=== PATIENT | female | born 1935 | race Caucasian/White ===

== ENCOUNTER → 2017-02-23 | Outpatient (CLI) | payer MEDICARE | END | disposition home or self-care (01) | LOC: GMAB 11:07 | PROVIDERS: ATTEND Family Medicine | DX: E03.9 Hypothyroidism, unspecified (principal) ==

== ENCOUNTER → 2017-05-05 | Outpatient (CLI) | payer MEDICARE | END | disposition home or self-care (01) | LOC: GMAB 11:08 | PROVIDERS: ATTEND Family Medicine | DX: R06.02 Shortness of breath (principal) ==

== ENCOUNTER → 2017-06-02 | Outpatient (CLI) | payer MEDICARE | END | disposition home or self-care (01) | LOC: GMAB 11:51 | PROVIDERS: ATTEND Family Medicine | DX: E03.9 Hypothyroidism, unspecified (principal) ==

== ENCOUNTER → 2017-06-08 | Outpatient (CLI) | payer MEDICARE ==
--- NOTE | 2017-06-09 13:42 | MRI ---
EXAM DESCRIPTION: Cervical Spine: MRI. CLINICAL HISTORY: RADICULOPATHY, CERVICAL REGION COMPARISON: None. TECHNIQUE: Multiplanar MRI, multiple sequences, non-contrast High-field. FINDINGS: C2-3: Disc desiccation of the disc with no bulging. Canal and foramina are patent. Minimal facet arthrosis bilaterally. C3-4: Disc desiccation and moderate disc space loss with endplate irregularity. Grade 1 anterolisthesis 3.9 mm posteriorly posterior broad-based disc osteophyte bulge abutting the cord. Posterior ligaments with minimal hypertrophy. Mild canal narrowing. Left uncinate spur and facet hypertrophy with neural foraminal stenosis. Impingement of the C4 nerve in the neural foramen. Minimal arthrosis in the right facet. C4-5: Disc desiccation. Minimal disc space loss. Grade 1 anterolisthesis 1.8 mm. Posterior disc bulge abutting the cord. Severe bilateral neural foraminal narrowing. Canal Is patent. Bilateral mild facet arthrosis. C5-6: Moderate to severe disc space loss and desiccation. Grade 1 retrolisthesis 4 mm. Inferior C5 endplate is abutting the ventral cord. Bilateral uncinate spurs. Bilateral severe foraminal narrowing more left than right. Bilateral mild facet arthrosis. C6-7: Disc desiccation. Grade 1 anterolisthesis 2 mm. Disc space loss posterior. No significant bulge. Right uncinate spur with moderate to severe neural foraminal narrowing. Mild left neural foraminal narrowing. Hypertrophy of the posterior ligaments with mild to moderate canal narrowing. C7-T1 disc space maintained. Grade 1 anterolisthesis 2 mm. Disc desiccation. Mild canal narrowing. Mild bilateral neural foraminal narrowing. Mild left facet arthrosis and moderate right facet arthrosis. Normal signal in the T1-2 disc with no bulging. Disc spaces preserved. Canal and neural foramina are patent. Facets are unremarkable. No cord compression or cord edema. Spine is kyphotic C2-C5. Atlantoaxial joint is minimally degenerated. Base of the cerebellar tonsils is above the foramen magnum. Paravertebral soft tissues negative. Vertebral bodies are not compressed at any level. Normal marrow signal in the remaining vertebral bodies and the posterior elements. IMPRESSION: 1. Grade 1 anterolisthesis and spondylosis C3-4. Uncinate spur causing left neural foraminal stenosis. Correlate for left C4 radiculopathy. 2. Grade 1 anterolisthesis C4-5. Bulging disc. Bilateral severe neural foraminal narrowing; correlate for bilateral C5 radiculopathy. 3. C5-6 with grade 1 retrolisthesis and marked spondylosis. Moderate canal narrowing. Bilateral neural foraminal stenosis. Correlate for bilateral C6 radiculopathy.. 4. C6-7 grade 1 anterolisthesis and narrowing of the posterior disc space. Right uncinate spur and severe neural foraminal narrowing. Correlate for left C7 radiculopathy. 5. Grade 1 anterolisthesis 2 mm C7-T1. Moderate right facet arthrosis. Electronically signed by: Armin Hester MD 06/09/2017 1:40 PM [facility]
== END | disposition home or self-care (01) ==
LOC: MRI 14:13
PROVIDERS: ATTEND Family Medicine
DX: M54.12 Radiculopathy, cervical region (principal)

== ENCOUNTER → 2018-11-21 | Outpatient (CLI) | payer MEDICARE | LOC: GMAE 11:34 | PROVIDERS: ATTEND Family Medicine | DX: E03.9 Hypothyroidism, unspecified (principal); I10 Essential (primary) hypertension; E78.5 Hyperlipidemia, unspecified ==

== ENCOUNTER → 2018-12-21 | Outpatient (CLI) | payer MEDICARE ==
--- NOTE | 2018-12-23 08:01 | CT ---
EXAM DESCRIPTION: Abdoment/Pelvis w/o Contrast CLINICAL HISTORY: 83 years, Female, Chronic kidney disease COMPARISON: Previous sonogram December 07, 2006 TECHNIQUE: CT of the abdomen and pelvis is performed according to our non contrast protocol. FINDINGS: The lung bases are clear except for patchy atelectasis or scarring in the inferior lingula. Heart size is normal. Liver, spleen, and pancreas are unremarkable. Small duodenal diverticula in the region of the head of the pancreas. Question sludge in the posterior gallbladder versus noncalcified calculi. Correlate with sono findings. Patient had a previous sonogram December 07, 2006 which showed no gallstones. Adrenal glands appear normal. The right kidney contains a small hemorrhagic cyst but is otherwise unremarkable. The left kidney is unremarkable. No renal stones or hydronephrosis. Small bowel loops appear normal in caliber with normal wall thickness. There is no lymphadenopathy, inflammation, or free fluid observed. In the pelvis, the appendix is normal. No inflammation around the cecum or terminal ileum or sigmoid colon. Extensive sigmoid diverticulosis. No stones in the distal ureters or bladder. Rectal wall thickness is normal for degree of distention. No free fluid or mass in the pelvis. Uterus is surgically absent. Ovaries appear small and atrophic. No inguinal or lower pelvic adenopathy. Coronal and sagittal reformatted images confirm the findings. Severe degenerative disc disease in the lumbar spine and lower T-spine. Bilateral L4 spondylolysis with grade 1-2 anterolisthesis of L4 on L5. 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 IMPRESSION: No acute upper abdominal process. See above. No acute process in the pelvis. This exam was performed according to our departmental dose-optimization program, which includes automated exposure control, adjustment of the mA and/or kV according to patient size and/or use of iterative reconstruction technique. Total DLP equals 1267.36 mGycm. Electronically signed by: Rg Doherty MD 12/23/2018 7:59 AM CDT
== END ==
LOC: LAB.O 08:51
PROVIDERS: ATTEND Internal Medicine Nephrology
DX: N18.4 Chronic kidney disease, stage 4 (severe) (principal)

== ENCOUNTER → 2019-02-27 | Outpatient (CLI) | payer MEDICARE | LOC: GMAE 10:45 | PROVIDERS: ATTEND Family Medicine | DX: E03.9 Hypothyroidism, unspecified (principal); E78.5 Hyperlipidemia, unspecified ==

== ENCOUNTER → 2019-11-23 | Outpatient (CLI) | payer MEDICARE, OTHER | LOC: GMAE 11:01 | PROVIDERS: ATTEND Family Medicine | DX: E03.9 Hypothyroidism, unspecified (principal); I10 Essential (primary) hypertension; E78.5 Hyperlipidemia, unspecified ==

== ENCOUNTER 2020-07-20 16:26 | Emergency (ER) | payer OTHER ==
[2020-07-20] MEDS ORDERED: IPRATROPIUM/ALBUTEROL 3 ML VIAL NEB ONE (16:49)
--- NOTE | 2020-07-20 17:31 | RAD ---
EXAM: Chest,1 View CLINICAL INDICATION: Hypoxia COMPARISON: There is no previous study for comparison. FINDINGS: A single view of the chest was obtained. The heart size is normal. The pulmonary vascularity is unremarkable. The lungs are clear. There is no consolidation, infiltrate, pleural effusion, or pneumothorax. IMPRESSION: No evidence of active pulmonary disease. Electronically signed by: Rigboerto Mojica MD 07/20/2020 5:30 PM [facility]
--- NOTE | 2020-07-20 18:26 | ED.PDOC ---
History of Present Illness - General Chief Complaint: Respiratory Problem Stated Complaint: covid positive, referred from [facility] Time Seen by Provider: 07/20/20 16:33 Source: patient Exam Limitations: no limitations - History of Present Illness Initial Comments: The patient is a 85-year-old female presented to emergency room secondary to being diagnosed with coronavirus today. The patient had had some borderline low oxygen levels in the clinic. She received a steroid shot and a shot of an antibiotic. She was written for azithromycin and an oral steroid for an outpatient. She was sent here to the emergency room for further evaluation. The patient has had a cough and a runny nose as well as a mild sore throat for about 4 days. No real shortness of breath. Cough is becoming a little more productive. Questionable fever. No syncope. No chest pain. Timing/Duration: other - 4 days Severity: moderate Improving Factors: nothing Associated Symptoms: cough, malaise Allergies/Adverse Reactions: Allergies Shellfish Allergy Allergy (Verified 07/20/20 16:46) Home Medications: Ambulatory Orders Apixaban [Eliquis] 2.5 mg PO BID #20 tab 07/20/20 Budes/Formoterol INH 160/4.5 [Symbicort Inhaler 160/4.5] 1 puff INH DAILY 07/20/20 Chlorthalidone [Hygroton] 25 mg PO DAILY 07/20/20 Irbesartan 150 mg PO DAILY 07/20/20 Levothyroxine Sodium [Synthroid] 0.125 mg PO DAILY 07/20/20 Spironolactone 25 mg PO DAILY 07/20/20 Review of Systems - Review of Systems Constitutional: States: malaise EENTM: States: nose congestion, throat pain Respiratory: States: cough Cardiology: States: no symptoms reported Gastrointestinal/Abdominal: States: no symptoms reported Genitourinary: States: no symptoms reported Musculoskeletal: States: no symptoms reported Skin: States: no symptoms reported Neurological: States: no symptoms reported Endocrine: States: no symptoms reported All other Systems: No Change from Baseline Past Medical History (General) - Patient Medical History Hx Seizures: No Hx of COPD: No Hx Hypertension: Yes Hx Thyroid Disease: Yes Hx Diabetes: No Surgical History: Hysterectomy Family Medical History - Family History Mother Family History: No Known Physical Exam - Physical Exam General Appearance: Alert, Comfortable, No apparent distress Eye Exam: bilateral normal Ears, Nose, Throat: hearing grossly normal, nasal congestion Neck: full range of motion, supple Respiratory: no respiratory distress, no accessory muscle use, rhonchi Cardiovascular/Chest: normal peripheral pulses, regular rate, rhythm, no edema Peripheral Pulses: radial,right: 2+, radial,left: 2+ Gastrointestinal/Abdominal: non tender, soft Rectal Exam: deferred Back Exam: no CVA tenderness, no vertebral tenderness Extremity: non-tender, normal inspection, no pedal edema, normal capillary refill 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 The patient appears to do well on her breathing treatments, helping her oxygenation. For this reason she needs to continue them every 6 hours or so at home for the next 3 to 4 days at least. The patient already has a steroid and antibiotic written by her primary care doctor which she should get filled and take. Due to the elevated inflammatory markers, I am going to place the patient on Eliquis for the next 3 weeks. She does obviously need to avoid injury while she is on a blood thinner. The patient did receive a dose of monoclonal antibody here in treatment as well. I do want her to follow back up with her primary care doctor in a couple of days. Obviously if the patient is worsening rather than holding steady or improving, then she should return here for further evaluation. For now I believe the patient would be better off at home where she can be more ambulatory and functional. The patient does have some mild acute on chronic renal insufficiency. I want her to hold her water pills for the next 2 to 3 days. [email or web address] [email or web address] [id number] 07/20/20 18:32 07/20/20 20:39 Extended stay due to monoclonal antibody infusion and difficulty with obtaining it tonight. - Results/Orders Results/Orders: Chest x-ray shows no obvious acute pathology. 07/20/20 17:00 EKG STAT shows normal sinus rhythm with PACs. Mild left axis deviation. There is mild criteria for LVH. No ST segment or T wave changes indicative of acute i schemia. Normal QT interval. Poor R wave progression. Laboratory Results - last 24 hr 07/20/20 07/20/20 07/20/20 16:48 17:03 17:03 WBC 5.2 RBC 4.50 Hgb 13.0 Hct 39.7 MCV 88.4 MCH 28.9 MCHC 32.7 L RDW 15.0 H Plt Count 118 L MPV 9.6 Absolute Neuts (auto) 4.00 Absolute Lymphs (auto) 0.60 L Absolute Monos (auto) 0.50 Absolute Eos (auto) 0.00 Absolute Basos (auto) 0.00 Neutrophils % 77.7 Lymphocytes % 12.2 L Monocytes % 9.6 H Eosinophils % 0.0 L Basophils % 0.5 PT INR PTT (SP) Fibrinogen D-Dimer, Quantitative Sodium 135 Potassium 4.6 Chloride 102 Carbon Dioxide 21 Anion Gap 16.6 BUN 55 H Creatinine 1.92 H BUN/Creatinine Ratio 28.6 H Random Glucose 111 H Serum Osmolality 285.9 Lactic Acid Calcium 8.9 Magnesium 1.7 L Ferritin 107.4 Total Bilirubin 0.7 AST 39 ALT 24 Alkaline Phosphatase 66 LD Total 178 Creatine Kinase 310 H* CK-MB (CK-2) 3.9 CK-MB (CK-2) % 1.26 Troponin I < 0.02 C-Reactive Protein 4.5 H B-Natriuretic Peptide < 15.0 Serum Total Protein 7.2 Albumin 4.0 Globulin 3.2 Albumin/Globulin Ratio 1.3 07/20/20 07/20/20 17:03 17:03 WBC RBC Hgb Hct MCV MCH MCHC RDW Plt Count MPV Absolute Neuts (auto) Absolute Lymphs (auto) Absolute Monos (auto) Absolute Eos (auto) Absolute Basos (auto) Neutrophils % Lymphocytes % Monocytes % Eosinophils % Basophils % PT 10.2 INR 1.03 PTT (SP) 30.4 Fibrinogen 400 H D-Dimer, Quantitative 1820.0 H* Sodium Potassium Chloride Carbon Dioxide Anion Gap BUN Creatinine BUN/Creatinine Ratio Random Glucose Serum Osmolality Lactic Acid 2.1 Calcium Magnesium Ferritin Total Bilirubin AST ALT Alkaline Phosphatase LD Total Creatine Kinase CK-MB (CK-2) CK-MB (CK-2) % Troponin I C-Reactive Protein B-Natriuretic Peptide Serum Total Protein Albumin Globulin Albumin/Globulin Ratio Departure - Departure Clinical Impression: COVID-19 virus infection, Advanced age, Elevated d-dimer Chronic renal disease Qualifiers: Chronic kidney disease stage: stage 3 (moderate) Disposition: Discharge to Home or Self Care Condition: Fair Departure Forms: ED Discharge - Pt. Copy, Patient Portal Self Enrollment Instructions: Coronavirus Disease 2019 (COVID-19) Overview Diet: regular diet Activity: increase activity as tolerated Referrals: JOCY TURK MD [Primary Care Provider] - 1-2 Weeks Prescriptions: Apixaban [Eliquis] 2.5 mg PO BID #20 tab Home Medications: Ambulatory Orders Apixaban [Eliquis] 2.5 mg PO BID #20 tab 07/20/20 Budes/Formoterol INH 160/4.5 [Symbicort Inhaler 160/4.5] 1 puff INH DAILY 07/20/20 Chlorthalidone [Hygroton] 25 mg PO DAILY 07/20/20 Irbesartan 150 mg PO DAILY 07/20/20 Levothyroxine Sodium [Synthroid] 0.125 mg PO DAILY 07/20/20 Spironolactone 25 mg PO DAILY 07/20/20 Additional Instructions: The patient is a 85-year-old female presented to emergency room secondary to coronavirus infection. The patient appears to do well on her breathing treatments, helping her oxygenation. For this reason she needs to continue them every 6 hours or so at home for the next 3 to 4 days at least. The patient already has a steroid and antibiotic written by her primary care doctor which she should get filled and take. Due to the elevated inflammatory markers, I am going to place the patient on Eliquis for the next 3 weeks. She does obviously need to avoid injury while she is on a blood thinner. The patient did receive a dose of monoclonal antibody here in treatment as well. I do want her to follow back up with her primary care doctor in a couple of days. The patient does show some mild dehydration, I therefore want her to hold her water pills for at least the next 2 days. Obviously if the patient is worsening rather than holding steady or improving, then she should return here for furth er evaluation. For now I believe the patient would be better off at home where she can be more ambulatory and functional.
[2020-07-20] MEDS ORDERED: ENOXAPARIN SODIUM 80 MG/0.8 ML SYG SUBCU ONE (18:48)
[2020-07-20] MEDS ORDERED: ALBUTEROL SULFATE 2.5 MG/3 ML VIAL NEB ONE (20:23)
[2020-07-20] MEDS ORDERED: SODIUM CHLORIDE 0.9% 250ML 250 ML ONE (20:42)
[2020-07-20 22:35] VITALS: TEMP 97.9; O2SAT 96
[2020-07-20 23:28] VITALS: BP 122/64
== END 2020-07-20 23:10 ==
LOC: ER 16:26
DX: U07.1 COVID-19 (principal); N18.30 Chronic kidney disease, stage 3 unspecified; R79.89 Other specified abnormal findings of blood chemistry; I49.1 Atrial premature depolarization; I12.9 Hypertensive chronic kidney disease with stage 1 through stage 4 chronic kidney disease, or unspecified chronic kidney disease; E07.9 Disorder of thyroid, unspecified; Z79.899 Other long term (current) drug therapy; Z91.013 Allergy to seafood
CPT/HCPCS: 36415; 71045; 80053; 82550; 82553; 82728; 83605; 83615; 83735; 83880; 84484; 85025; 85379; 85384; 85610; 85730; 86140; 93005; 94640; J1650; J7050; J7611; J7620

== ENCOUNTER 2020-07-25 09:18 | Inpatient (IN) | payer OTHER ==
--- NOTE | 2020-07-25 10:12 | RAD ---
EXAM DESCRIPTION: Chest,1 View CLINICAL HISTORY: 85 years Female, sob COMPARISON: July 20, 2020 TECHNIQUE: AP portable chest. FINDINGS: Improved positioning and improved aeration of the lung lobo evident but there is now hazy alveolar changes in both mid lung lobo with relative sparing of the apical regions and lung bases. Edema versus developing infiltrative changes should be considered. Tortuous calcified aorta with normal sized heart. Central vascularity appears prominent. Significant pleural effusions not apparent. How much of the parenchymal changes represent central edema and how much represents acute inflammation is difficult to assess. IMPRESSION: Improved aeration of the lungs but deterioration of the midlung lobo with developing hazy infiltrate or edema in both mid lung lobo. Electronically signed by: Marck Srinivasan MD 07/25/2020 10:10 AM [facility]
--- NOTE | 2020-07-25 10:20 | ED.PDOC ---
History of Present Illness - General Chief Complaint: Respiratory Problem Stated Complaint: covid, altered mental Time Seen by Provider: 07/25/20 09:51 Source: patient, RN notes reviewed, Vital Signs reviewed Exam Limitations: other - Pt confusion - History of Present Illness Initial Comments: Patient is an 85-year-old white female who presents with confusion. Patient complains of shortness of breath. Patient's room air oxygen saturation is 82%. When she was placed on 3 L via nasal cannula her oxygen saturation improved to 94%. Unable to obtain a full history of present illness or review of systems as patient is confused. Timing/Duration: unsure Severity: severe Improving Factors: nothing Worsening Factors: nothing Associated Symptoms: shortness of breath Allergies/Adverse Reactions: Allergies Shellfish Allergy Allergy (Verified 07/20/20 16:46) Home Medications: Ambulatory Orders Budes/Formoterol INH 160/4.5 [Symbicort Inhaler 160/4.5] 1 puff INH DAILY 07/20/20 Chlorthalidone [Hygroton] 25 mg PO DAILY 07/20/20 Irbesartan 150 mg PO DAILY 07/20/20 Levothyroxine Sodium [Synthroid] 0.125 mg PO DAILY 07/20/20 Spironolactone 25 mg PO DAILY 07/20/20 Apixaban [Eliquis] 2.5 mg PO BID 07/25/20 Cetirizine-Pseudoephedrine [Zyrtec-D Allergy/Congesti] 1 tab PO DAILY 07/25/20 Simvastatin 20 mg PO BEDTIME 07/25/20 Review of Systems - Review of Systems Unable to Obtain Due To: clinical condition - Patient is confused and hypoxic. Past Medical History (General) - Patient Medical History Hx Seizures: No Hx of COPD: No Hx Hypertension: Yes Hx Thyroid Disease: Yes Hx Diabetes: No Family Medical History - Family History Mother Family History: No Known Physical Exam - Physical Exam General Appearance: Alert, Anxious, Obvious distress, Well Developed, Well Groomed, Well Hydrated, Well Nourished Eye Exam: bilateral normal Ears, Nose, Throat: hearing grossly normal, normal ENT inspection, normal pharynx Neck: non-tender, full range of motion, supple Respiratory: chest non-tender, respiratory distress - Moderate, decreased breath sounds - Throughout, rales - In the bases bilaterally right greater than left. 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 07/25/20 11:45 Patient with hypoxia on room air. Chest x-ray consistent with COVID-19 pneumonia. Possibility of PE is considered, especially with a high D-dimer, unable to perform a CTA to rule this out at this time secondary to an elevated creatinine and her state of dehydration. I have discussed that with the inpatient service, Jacquelin Paredes NP, who will obtain that tomorrow after IV hydration and repeat labs. Suspect the patient does not have a bacterial pneumonia as she does not have fever. We will plan on admission to the hospital for hypoxia and COVID-19 pneumonia. I discussed the plan of care with the patient she voices understanding and agreement. Rodger Bautista M.D. #[id number] - Results/Orders Results/Orders: EKG performed 25 July 2020 at 0929 hrs.: Normal sinus rhythm at 85 bpm, left axis deviation, left ventricular hypertrophy, abnormal EKG. No comparison EKG available at this time. EXAM DESCRIPTION: Chest,1 View CLINICAL HISTORY: 85 years Female, sob COMPARISON: July 20, 2020 TECHNIQUE: AP portable chest. FINDINGS: Improved positioning and improved aeration of the lung lobo evident but there is now hazy alveolar changes in both mid lung lobo with relative sparing of the apical regions and lung bases. Edema versus developing infiltrative changes should be considered. Tortuous calcified aorta with normal sized heart. Central vascularity appears prominent. Significant pleural effusions not apparent. How much of the parenchymal changes represent central edema and how much represents acute inflammation is difficult to assess. IMPRESSION: Improved aeration of the lungs but deterioration of the midlung lobo with developing hazy infiltrate or edema in both mid lung lobo. Electronically signed by: Marck Srinivasan MD 07/25/2020 10:10 AM 07/25/20 09:51 IV Care:Saline Lock per Protoc STAT Isolation:Airborne ONCE Telemetry STAT 07/25/20 09:52 Oxygen Delivery Assessment: QSHIFT 07/25/20 10:00 EKG STAT Oxygen STAT Pulse Ox, Continuous Monitoring STAT 07/25/20 10:05 BLOOD CULTURE Stat 07/26/20 10:00 Oxygen STAT Pulse Ox, Continuous Monitoring STAT 07/27/20 10:00 Pulse Ox, Continuous Monitoring STAT Laboratory Results - last 24 hr 07/25/20 07/25/20 07/25/20 09:53 09:53 09:53 WBC 12.8 H RBC 4.57 Hgb 13.2 Hct 40.2 MCV 88.0 MCH 28.9 MCHC 32.8 L RDW 15.0 H Plt Count 143 MPV 9.7 Absolute Neuts (auto) 11.50 H Absolute Lymphs (auto) 0.70 L Absolute Monos (auto) 0.50 Absolute Eos (auto) 0.00 Absolute Basos (auto) 0.00 Neutrophils % 90.1 H Lymphocytes % 5.4 L Monocytes % 4.1 Eosinophils % 0.1 L Basophils % 0.3 PTT (SP) 29.6 D-Dimer, Quantitative 1240.0 H* Sodium 134 L Potassium 5.0 Chloride 102 Carbon Dioxide 22 Anion Gap 15.0 BUN 51 H Creatinine 1.43 H BUN/Creatinine Ratio 35.7 H Random Glucose 102 Serum Osmolality 282.1 Calcium 9.1 Magnesium 1.7 L Total Bilirubin 1.0 AST 47 H ALT 43 Alkaline Phosphatase 57 LD Total 300 H D Creatine Kinase 140 Troponin I C-Reactive Protein 7.6 H B-Natriuretic Peptide 48.6 Serum Total Protein 7.0 Albumin 3.5 Globulin 3.5 Albumin/Globulin Ratio 1.0 L 07/25/20 09:53 WBC RBC Hgb Hct MCV MCH MCHC RDW Plt Count MPV Absolute Neuts (auto) Absolute Lymphs (auto) Absolute Monos (auto) Absolute Eos (auto) Absolute Basos (auto) Neutrophils % Lymphocytes % Monocytes % Eosinophils % Basophils % PTT (SP) D-Dimer, Quantitative Sodium Potassium Chloride Carbon Dioxide Anion Gap BUN Creatinine BUN/Creatinine Ratio Random Glucose Serum Osmolality Calcium Magnesium Total Bilirubin AST ALT Alkaline Phosphatase LD Total Creatine Kinase Troponin I < 0.02 C-Reactive Protein B-Natriuretic Peptide Serum Total Protein Albumin Globulin Albumin/Globulin Ratio Vital Signs 07/25/20 07/25/20 07/25/20 09:24 10:00 10:57 Temperature 98.9 F Pulse Rate [ 86 86 left brachial] Respiratory 24 22 Rate Blood Pressure 148/92 134/84 [right brachial ] O2 Sat by Pulse 82 L 88 L 91 L Oximetry 07/25/20 11:00 Temperature Pulse Rate [ 82 left brachial] Respiratory 24 Rate Blood Pressure 124/66 [right brachial ] O2 Sat by Pulse 90 L Oximetry Departure - Departure Clinical Impression: COVID-19, Hypoxemia Pneumonia Qualifiers: Pneumonia type: due to unspecified organism Laterality: bilateral Lung location: unspecified part of lung Qualified Code(s): J18.9 - Pneumonia, unspecified organism Time of Disposition: 11:47 Disposition: Admit Patient Condition: Serious Departure Forms: ED Discharge - Pt. Copy, Patient Portal Self Enrollment Diet: resume usual diet Activity: as per physical therapy Referrals: JOCY UTRK MD [Primary Care Provider] - 1-2 Weeks Home Medications: Ambulatory Orders Budes/Formoterol INH 160/4.5 [Symbicort Inhaler 160/4.5] 1 puff INH DAILY Chlorthalidone [Hygroton] 25 mg PO DAILY 07/20/20 Irbesartan 150 mg PO DAILY 07/20/20 Levothyroxine Sodium [Synthroid] 0.125 mg PO DAILY 07/20/20 Spironolactone 25 mg PO DAILY 07/20/20 Apixaban [Eliquis] 2.5 mg PO BID 07/25/20 Cetirizine-Pseudoephedrine [Zyrtec-D Allergy/Congesti] 1 tab PO DAILY 07/25/20 Simvastatin 20 mg PO BEDTIME 07/25/20 Decision To Admit - Decistion To Admit Decision to Admit Date: 07/25/20 Decision to Admit Time: 11:00
[2020-07-25] MEDS ORDERED: cefTRIAXone SODIUM 1 GM in SODIUM CHL 0.9% 50ML MIN-BAG+ 50 ML IVPB ONE (11:44)
[2020-07-25] MEDS ORDERED: AZITHROMYCIN IV 500 MG in SODIUM CHLORIDE 0.9% 250ML 250 ML IVPB ONE (11:44)
[2020-07-25] MEDS ORDERED: REMDESIVIR 200 MG in SODIUM CHLORIDE 0.9% 250ML 250 ML IVPB ONE (11:45)
[2020-07-25] MEDS ORDERED: DEXAMETHASONE INJ 10 MG/ML VIAL IV ONE (11:45)
--- NOTE | 2020-07-25 12:19 | HP ---
SUPERVISING PHYSICIAN: Albert Greene MD CHIEF COMPLAINT: Confusion and shortness of breath. HISTORY OF PRESENT ILLNESS: This is an 85 year-old female patient who came to the Emergency Room due to confusion and increased shortness of breath. Her oxygen saturation on admission to the Emergency Room was 82% with a respiratory rate of 24. She was afebrile. After being placed on 02, her oxygen saturation improved to 94%. Her laboratory studies showed WBC of 12,800 with a hemoglobin of 13.2, hematocrit of 40.2. She had a left shift on her differential. Her D- dimer was 1,240. Sodium 134, magnesium 1.7. The remainder of her electrolytes were within normal limits. BUN 51, creatinine 1.43. AST 47, LD 300. C- reactive protein 7.6. Blood cultures were drawn. Chest x-ray showed improved aeration of the lungs but deterioration of the mid lung lobo with developing hazy infiltrate or edema in both mid lung lobo. They were unable to do a CTA due to her renal function. She was given Remdesivir, azithromycin, Rocephin, Decadron and multiple breathing treatments in the Emergency Room and was admitted to the hospital in stable condition. PAST MEDICAL HISTORY: 1. Hypertension. 2. Asthma. 3. Chronic renal failure. 4. Osteoarthritis. 5. Hypothyroidism. 6. Fibromyalgia. PAST SURGICAL HISTORY: 1. Hysterectomy. 2. Spinal surgery, lumbar region. CURRENT MEDICATIONS: 1. Eliquis. 2. Symbicort. 3. Cetirizine pseudoephedrine. 4. Chlorthalidone. 5. Irbesartan. 6. Levothyroxine. 7. Simvastatin. 8. Spironolactone. ALLERGIES: No known drug allergies. FAMILY HISTORY: Positive for congestive heart failure, Alzheimer's and coronary artery disease. SOCIAL HISTORY: She is , has 4 children. She denies ETOH, illicit drugs or alcohol use. REVIEW OF SYSTEMS: Difficult to obtain due to patient's mental status, although she does say she has been short of breath and it was reported from the Emergency Room that she is quite confused. PHYSICAL EXAMINATION: VITAL SIGNS: Temperature 98.1, heart rate 84, blood pressure 152/90, respiratory rate 22, oxygen saturation 92% on 5 liters nasal cannula. GENERAL: This is an 85 year-old female patient who is sitting up in her hospital bed. She is in mild respiratory distress. She is very pleasant. HEENT: Normocephalic and atraumatic. Pupils are equal and reactive. Oropharynx is clear. NECK: Supple. RESPIRATORY: Diminished throughout with a few scattered rhonchi in the upper airfields. She is tachypneic rest and worsens with exertion. CARDIOVASCULAR: Regular rate and rhythm. ABDOMEN: Soft, nondistended, non-tender. Bowel sounds are positive. EXTREMITIES: No cyanosis, clubbing, or edema. NEUROLOGIC: She is awake, alert, and oriented to person and place. Cranial nerves II through XII are grossly intact as tested. SKIN: [place], warm and dry. LABORATORY: Labs and films are as per the history of present illness. ASSESSMENT: 1. Covid-19 pneumonitis with hypoxia. 2. Confusion secondary to #1. 3. Sepsis related to bilateral pneumonia. She had an 02 saturation of 82%, respiratory rate of 24 and WBC of 12,800. 4. Chronic renal failure. 5. Hypertension. 6. Asthma with acute exacerbation. 7. Hypothyroidism. PLAN: The patient has been admitted to the hospital. We will continue the Covid guidelines and monitor her neuro status closely. I have also ordered a urinalysis to make sure she does not have a urinary tract infection, although her antibiotic should cover. I have also started the pneumonia guidelines. She will continue on azithromycin, Rocephin, Remdesivir, Decadron. Eliquis should be sufficient for her DVT prophylaxis. A PPI will be started for ulcer prophylaxis. Her own medications will be restarted as soon as they are verified. Aggressive pulmonary hygiene has been ordered with scheduled and p.r.n., short-acting beta agonist. She would benefit from a CTA of the chest if her kidney functions improve overnight. We will monitor and treat as needed. [facility][id number] [facility]
[2020-07-25] MEDS ORDERED: ALBUTEROL INHALER 64 PUFF/8GM INH PRN (15:53)
[2020-07-25] MEDS ORDERED: SODIUM CHLORIDE 0.9% (FLUSH) 10 ML SYG IV PRN (15:54)
[2020-07-25] MEDS ORDERED: ONDANSETRON INJ 4 MG/2 ML VIAL IV PRN (15:54)
[2020-07-25] MEDS: IV SET AND CAP CHANGE INJ INJ SCH (16:01)
[2020-07-25] MEDS: ALBUTEROL INHALER 64 PUFF/8GM INH SCH ×2 (16:30→20:41)
[2020-07-25] MEDS ORDERED: SIMVASTATIN 10 MG TAB PO ONE (18:56)
[2020-07-25] MEDS ORDERED: APIXABAN 5 MG TAB PO ONE (18:56)
[2020-07-25] MEDS ORDERED: BIFIDOBACTERIUM INFANTIS 4 MG CAP ONE (18:56)
[2020-07-25] MEDS ORDERED: guaiFENesin ER TAB 600 MG TAB ONE (18:56)
[2020-07-25] MEDS ORDERED: SODIUM CHLORIDE 0.9% (FLUSH) 10 ML SYG ONE (18:56)
[2020-07-25] MEDS: guaiFENesin ER TAB 600 MG TAB PO SCH (20:58)
[2020-07-25] MEDS: BIFIDOBACTERIUM INFANTIS 4 MG CAP PO SCH (20:58)
[2020-07-25] MEDS: APIXABAN 5 MG TAB PO SCH (20:58)
[2020-07-25] MEDS: SIMVASTATIN 20 MG TAB PO SCH (20:59)
[2020-07-25] MEDS: SODIUM CHLORIDE 0.9% (FLUSH) 10 ML SYG IV SCH (21:00)
[2020-07-25] MEDS ORDERED: ENOXAPARIN SODIUM 40 MG/0.4 ML SYG SUBCU SCH (21:00)
[2020-07-26] MEDS ORDERED: PANTOPRAZOLE SODIUM IV 40 MG VIAL ONE (04:58)
[2020-07-26] MEDS ORDERED: LEVOTHYROXINE SODIUM 0.025 MG TAB ONE (04:58)
[2020-07-26] MEDS ORDERED: LEVOTHYROXINE SODIUM 0.1 MG TAB ONE (04:58)
[2020-07-26] MEDS: LEVOTHYROXINE SODIUM 0.1 MG, LEVOTHYROXINE SODIUM 0.025 MG PO SCH ×2 (06:09)
[2020-07-26] MEDS ORDERED: BUDESONIDE/FORMOTEROL 160/4.5 60 PUFF/6 GM INH INH ONE (06:11)
[2020-07-26] MEDS ORDERED: LEVOTHYROXINE SODIUM 0.125 MG PO SCH (06:30)
[2020-07-26] MEDS ORDERED: PANTOPRAZOLE SODIUM IV 40 MG VIAL IV SCH (06:30)
--- NOTE | 2020-07-26 06:35 | RAD ---
PROCEDURE: XR CHEST 1 VIEW HISTORY: covid COMPARISON: Portable chest, 07/25/2020 FINDINGS: The heart is enlarged. Perihilar vascular congestion again noted. Atherosclerotic aortic calcifications noted. Patchy bilateral pulmonary infiltrates again seen, unchanged. No pleural effusion or pneumothorax. IMPRESSION: Patchy bilateral pulmonary infiltrates are concerning for multifocal pneumonia/COVID, unchanged. Electronically signed by: Canelo Fine MD 07/26/2020 6:34 AM POWER WHEELCHAIR MECHANIC
[2020-07-26] MEDS: BUDESONIDE/FORMOTEROL 160/4.5 60 PUFF/6 GM INH INH SCH (08:10)
[2020-07-26] MEDS: ALBUTEROL INHALER 64 PUFF/8GM INH SCH ×4 (08:10→20:00)
[2020-07-26] MEDS: DEXAMETHASONE INJ 10 MG/ML VIAL IV SCH (08:53)
[2020-07-26] MEDS: CHLORTHALIDONE 25 MG TAB PO SCH (08:53)
[2020-07-26] MEDS: BIFIDOBACTERIUM INFANTIS 4 MG CAP PO SCH ×2 (08:54→20:27)
[2020-07-26] MEDS: guaiFENesin ER TAB 600 MG TAB PO SCH ×2 (08:54→20:26)
[2020-07-26] MEDS: SODIUM CHLORIDE 0.9% (FLUSH) 10 ML SYG IV SCH ×2 (08:54→20:27)
[2020-07-26] MEDS: LOSARTAN POTASSIUM 25 MG TAB PO SCH (08:54)
[2020-07-26] MEDS: APIXABAN 5 MG TAB PO SCH ×2 (08:54→20:27)
[2020-07-26] MEDS: SPIRONOLACTONE 25 MG TAB PO SCH (08:54)
[2020-07-26] MEDS: CETIRIZINE HCL 10 MG TAB PO SCH (08:56)
[2020-07-26] MEDS: cefTRIAXone SODIUM 1 GM in SODIUM CHL 0.9% 50ML MIN-BAG+ 50 ML IVPB SCH (10:01)
[2020-07-26] MEDS: AZITHROMYCIN IV 500 MG in SODIUM CHLORIDE 0.9% 250ML 250 ML IVPB SCH (10:01)
[2020-07-26] MEDS ORDERED: REMDESIVIR IV 100 MG VIAL ONE (10:55)
[2020-07-26] MEDS ORDERED: SODIUM CHLORIDE 0.9% 250ML 250 ML ONE (10:55)
[2020-07-26] MEDS: REMDESIVIR 100 MG in SODIUM CHLORIDE 0.9% 250ML 250 ML IVPB SCH (11:39)
--- NOTE | 2020-07-26 13:56 | PN ---
SUPERVISING PHYSICIAN: Karey Greene MD DATE: 07/26/20 SUBJECTIVE: The patient seems to be doing okay. She is still having some shortness of breath on ambulation. She does not report any chest pains, nausea or vomiting. She has remained afebrile. OBJECTIVE: VITAL SIGNS: Temperature 98, pulse 77, blood pressure 135/81, respirations 20, saturation 91% on 4 liters nasal cannula. GENERAL: The patient is resting comfortably, in no acute distress. CHEST: Lung sounds are fairly clear, just diminished towards the bases. I do not hear any obvious rales, rhonchi or wheezing. HEART: Regular rate and rhythm. ABDOMEN: Soft, nontender. Positive bowel sounds. EXTREMITIES: No edema. NEUROLOGIC: Alert and oriented times three. LABORATORY: White count down to 9,000. Differential does show a left shift with 4% bands. Coagulation studies show D-dimer 1630 which is up from admission of 1240. Chemistries show normal electrolytes with normal anion gap. Creatinine 1.21 today. Calcium 9.2, magnesium 1.7. Liver functions within normal limits. C-reactive protein is up to 15.8. MICROBIOLOGY: Blood cultures remain negative at 24 hours. RADIOLOGY: CT of her chest is pending. Portable chest this morning showed patchy pulmonary infiltrates concerning for multifocal pneumonia/COVID, unchanged. ASSESSMENT: 1. COVID-19 pneumonitis with hypoxia. 2. Confusion secondary to #1. 3. Sepsis related to bilateral pneumonia. She had an 02 saturation of 82%, respiratory rate of 24 and WBC of 12,800. 4. Chronic renal failure. 5. Hypertension. 6. Asthma with acute exacerbation. 7. Hypothyroidism. PLAN: We will continue treating for COVID pneumonitis with azithromycin, Rocephin, remdesivir and Decadron. She is on Eliquis at this point for DVT prophylaxis. She remains on Protonix. We will await a CT of her chest this morning. I anticipate at least another 24 to 48 hours of hospitalization prior to discharge so she can maintain outpatient management. Until then, we will continue to monitor and treat as needed. #[id number] [facility]
--- NOTE | 2020-07-26 14:16 | CT ---
EXAM DESCRIPTION: Chest w/o Contrast CLINICAL HISTORY: 85 years Female, COVID PNA; R/O PE TECHNIQUE: This exam was performed according to our departmental dose-optimization program, which includes automated exposure control, adjustment of the mA and/or kV according to patient size and/or use of iterative reconstruction technique. COMPARISON: None at time of initial interpretation. FINDINGS: No axillary adenopathy. Normal caliber thoracic aorta. Coronary artery and aortic valvular calcifications. No pericardial effusion. No evidence of acute process in the visualized abdomen. Small hiatal hernia. No mediastinal adenopathy. Diffuse bilateral groundglass airspace opacities. No pneumothorax. No pleural effusion. Similar chronic T11 compression fracture. IMPRESSION: Multifocal pneumonia. Consider viral etiologies. Electronically signed by: Lito Mathews MD 07/26/2020 2:15 PM FOOD MIXER ASSEMBLER
[2020-07-26] MEDS: SIMVASTATIN 20 MG TAB PO SCH (20:27)
[2020-07-27] MEDS ORDERED: PANTOPRAZOLE SODIUM TAB 40 MG PO ONE (05:04)
[2020-07-27] MEDS: PANTOPRAZOLE SODIUM TAB 40 MG PO SCH (06:05)
[2020-07-27] MEDS: LEVOTHYROXINE SODIUM 0.1 MG, LEVOTHYROXINE SODIUM 0.025 MG PO SCH ×2 (06:05)
--- NOTE | 2020-07-27 07:58 | RAD ---
PROCEDURE: XR Chest, 1 View CLINICAL INDICATION: The patient is 85 years old and is Female; covid MAIN TECHNIQUE: Frontal view of the chest. COMPARISON: XR CHEST 1 V from 07/26/2020 FINDINGS: LUNGS: There is [place] pulmonary edema with cardiomegaly and no effusions. This is unchanged. PLEURAL SPACE: There is no pneumothorax. There are no pleural effusions noted. HEART: See above. MEDIASTINUM: The mediastinal contour is normal. BONES/JOINTS: No acute abnormality noted. VASCULATURE: The aorta is uncoiled. TUBES, LINES AND DEVICES: There are electrocardiogram leads present. IMPRESSION: There is [place] pulmonary edema with cardiomegaly and no effusions. This is unchanged. Findings consistent with congestive heart failure and volume overload. Underlying viral pneumonia is not excluded. Electronically signed by: Paulie Shannon MD 07/27/2020 7:57 AM OAK TANNER
[2020-07-27] MEDS: CETIRIZINE HCL 10 MG TAB PO SCH (08:18)
[2020-07-27] MEDS: LOSARTAN POTASSIUM 25 MG TAB PO SCH (08:18)
[2020-07-27] MEDS: CHLORTHALIDONE 25 MG TAB PO SCH (08:18)
[2020-07-27] MEDS: guaiFENesin ER TAB 600 MG TAB PO SCH ×2 (08:19→20:55)
[2020-07-27] MEDS: BIFIDOBACTERIUM INFANTIS 4 MG CAP PO SCH ×2 (08:19→20:56)
[2020-07-27] MEDS: SPIRONOLACTONE 25 MG TAB PO SCH (08:19)
[2020-07-27] MEDS: APIXABAN 5 MG TAB PO SCH ×2 (08:19→20:55)
[2020-07-27] MEDS: DEXAMETHASONE INJ 10 MG/ML VIAL IV SCH (08:19)
[2020-07-27] MEDS: AZITHROMYCIN IV 500 MG in SODIUM CHLORIDE 0.9% 250ML 250 ML IVPB SCH (08:20)
[2020-07-27] MEDS: cefTRIAXone SODIUM 1 GM in SODIUM CHL 0.9% 50ML MIN-BAG+ 50 ML IVPB SCH (08:20)
[2020-07-27] MEDS: SODIUM CHLORIDE 0.9% (FLUSH) 10 ML SYG IV SCH ×2 (08:30→20:56)
[2020-07-27] MEDS: ALBUTEROL INHALER 64 PUFF/8GM INH SCH ×4 (08:30→20:00)
[2020-07-27] MEDS: BUDESONIDE/FORMOTEROL 160/4.5 60 PUFF/6 GM INH INH SCH (08:30)
[2020-07-27] MEDS: REMDESIVIR 100 MG in SODIUM CHLORIDE 0.9% 250ML 250 ML IVPB SCH (12:47)
[2020-07-27] MEDS ORDERED: MAGNESIUM SULFATE PREMIX 2GM 2 GM in PREMIX BAG 1 BAG IVPB ONE (14:55)
--- NOTE | 2020-07-27 16:07 | PN ---
SUPERVISING PHYSICIAN: Karey Greene MD DATE: 07/27/20 SUBJECTIVE: The patient is still having some shortness of breath with ambulation. She has been going from the chair to the bed and significantly desatting at times. She is not having any chest pain, nausea or vomiting. OBJECTIVE: VITAL SIGNS: Temperature 97.2, pulse 83, blood pressure 119/72, respirations 22, saturation 94% on 8 liter nasal cannula. GENERAL: The patient is resting comfortably, in no acute distress. CHEST: Lung sounds are fairly clear, just diminished towards the bases. I do not hear any obvious rales, rhonchi or wheezing. HEART: Regular rate and rhythm. ABDOMEN: Soft, nontender. Positive bowel sounds. EXTREMITIES: No edema. NEUROLOGIC: Alert and oriented times three. LABORATORY: BNP is normal. Chemistries show normal electrolytes with a creatinine 1.26. Magnesium is a little low at 1.6 today. Liver functions all within normal limits. Troponin less than 0.02. C-reactive protein 9.2. White count 11.2, she does show a left shift. Coagulation studies show D-dimer is down to 1550. Blood cultures remain negative at 48 hours. RADIOLOGY: Chest x-ray today per radiology interpretation shows findings consistent with congestive failure and volume overload, underlying viral pneumonia is not excluded. CT of her chest shows multifocal pneumonia. ASSESSMENT: 1. COVID-19 pneumonitis with hypoxia and bilateral pneumonia 2. Exacerbation of asthma secondary to #1. 3. Sepsis due to bilateral pneumonia secondary to # 1 4. Confusion secondary to #1. Resolved 5. Chronic renal failure at baseline creatinine levels. 6. Hypertension 7. Hypothyroidism. PLAN: We will continue current treatment plan with azithromycin, Rocephin, Remdesivir and Decadron. She does remain on Eliquis for DVT prophylaxis. She is on Protonix. We will continue to titrate her oxygen down as possible and anticipate hopefully being able to discharge her in the next 24 to 48 hours. Until that point, we will continue to monitor and treat as needed. #[id number] [facility]
[2020-07-27] MEDS ORDERED: MAGNESIUM SULFATE PREMIX 2GM 50 ML IVPB ONE (16:54)
[2020-07-27] MEDS: SIMVASTATIN 20 MG TAB PO SCH (20:56)
[2020-07-28] MEDS: LEVOTHYROXINE SODIUM 0.1 MG, LEVOTHYROXINE SODIUM 0.025 MG PO SCH ×2 (06:17)
[2020-07-28] MEDS: PANTOPRAZOLE SODIUM TAB 40 MG PO SCH (06:18)
--- NOTE | 2020-07-28 07:16 | RAD ---
: 1935. Technique: Portable AP chest x-ray. Comparison: July 27, 2020. Clinical history: COVID. Heart size: Normal for technique. Lungs: Shallow inspiration. Extensive infiltrates in the central lung lobo bilaterally consistent with viral pneumonia. There is little change but perhaps slight improvement on the left side. Pleura: No pleural effusion. No pneumothorax. Mediastinum and marlene: Unremarkable. Skeletal: Unremarkable. Support tubings: None. Impression: 1. Bilateral pneumonia slightly improved on the left. Electronically signed by: Zechariah Thorne MD 07/28/2020 7:15 AM GAMEMASTER
[2020-07-28] MEDS: ALBUTEROL INHALER 64 PUFF/8GM INH SCH ×4 (08:30→21:03)
[2020-07-28] MEDS: BUDESONIDE/FORMOTEROL 160/4.5 60 PUFF/6 GM INH INH SCH (08:30)
[2020-07-28] MEDS: cefTRIAXone SODIUM 1 GM in SODIUM CHL 0.9% 50ML MIN-BAG+ 50 ML IVPB SCH (09:06)
[2020-07-28] MEDS: LOSARTAN POTASSIUM 25 MG TAB PO SCH (09:06)
[2020-07-28] MEDS: APIXABAN 5 MG TAB PO SCH ×2 (09:07→21:22)
[2020-07-28] MEDS: guaiFENesin ER TAB 600 MG TAB PO SCH ×2 (09:07→21:22)
[2020-07-28] MEDS: CETIRIZINE HCL 10 MG TAB PO SCH (09:07)
[2020-07-28] MEDS: CHLORTHALIDONE 25 MG TAB PO SCH (09:07)
[2020-07-28] MEDS: DEXAMETHASONE INJ 10 MG/ML VIAL IV SCH (09:07)
[2020-07-28] MEDS: SPIRONOLACTONE 25 MG TAB PO SCH (09:07)
[2020-07-28] MEDS: BIFIDOBACTERIUM INFANTIS 4 MG CAP PO SCH ×2 (09:07→21:22)
[2020-07-28] MEDS: AZITHROMYCIN IV 500 MG in SODIUM CHLORIDE 0.9% 250ML 250 ML IVPB SCH (09:08)
[2020-07-28] MEDS: SODIUM CHLORIDE 0.9% (FLUSH) 10 ML SYG IV SCH ×2 (09:08→21:23)
[2020-07-28] MEDS: REMDESIVIR 100 MG in SODIUM CHLORIDE 0.9% 250ML 250 ML IVPB SCH (12:31)
--- NOTE | 2020-07-28 15:56 | PN ---
SUPERVISING PHYSICIAN: Karey Greene MD DATE: 07/28/20 SUBJECTIVE: The patient continues to have a slight increase her daily requirements of oxygen. She has not really complained of any worsened shortness of breath, but she certainly desaturates quickly. She is actually able to move from the chair to the bed and the commode without any significant respiratory distress. She has no chest pains. She has been afebrile. She has had no nausea or vomiting. OBJECTIVE: VITAL SIGNS: Temperature 97.9, pulse 82, blood pressure 125/74, respirations 16, saturation 90% on 9 liters high flow. GENERAL: The patient is resting comfortably, in no acute distress. CHEST: Lung sounds are fairly clear, just diminished towards the bases. I do not hear any obvious rales, rhonchi or wheezing. HEART: Regular rate and rhythm. ABDOMEN: Soft, nontender. Positive bowel sounds. EXTREMITIES: No edema. NEUROLOGIC: Alert and oriented times three. LABORATORY: White count 12,500. Hemoglobin stable at 13.2 and hematocrit 39.6. Platelet count 176,000. Differential shows a left shift, but no bands today. Coagulation studies show D-dimer continues to trend down and is down to 1170 from maximum of 1630. Chemistries show normal electrolytes. Creatinine 1.22. Calcium and magnesium are within normal limits. C-reactive protein is down to 5.3. MICROBIOLOGY: Blood cultures remain negative after 3 days. RADIOLOGY: Repeat chest x-ray this morning per radiologic interpretation of single view chest shows bilateral pneumonia, slightly improved on the left. ASSESSMENT: 1. COVID-19 pneumonitis with hypoxia and bilateral pneumonia. 2. Acute exacerbation of asthma secondary to #1. 3. Sepsis due to bilateral pneumonia secondary to # 1 4. Confusion secondary to #1, resolved. 5. Chronic renal failure at baseline creatinine levels. 6. Hypertension 7. Hypothyroidism. PLAN: We will continue current treatment plan with azithromycin, Rocephin, remdesivir and Decadron. Given that she has had a slight increase every day since she has been admitted in her O2 requirements, I think at this point we could try the Airvo nasal cannula high flow system to see if this might actually help her improve. The encouraging thing is her number on labs seem to be trending back to baseline levels although her requirements are still quite high. She is on Eliquis for DVT prophylaxis. She is on Protonix. I have ordered an ambulation study tomorrow. Hopefully, she will improve well enough that she could discharge once she gets below 4 liters on home oxygen. She is probably going to request to go home because she is adamant that she will be ready to go home by Wednesday. However, I have explained to her that her increasing need of oxygen does not hesham well for her discharge by tomorrow, but hopefully she will show some improvement over the next 24 hours. Until the patient can transition to outpatient management, we will continue to monitor and treat as needed. #[id number] [facility]
[2020-07-28] MEDS: IV SET AND CAP CHANGE INJ INJ SCH (17:53)
[2020-07-28] MEDS: SIMVASTATIN 20 MG TAB PO SCH (21:23)
[2020-07-29] MEDS: LEVOTHYROXINE SODIUM 0.1 MG, LEVOTHYROXINE SODIUM 0.025 MG PO SCH ×2 (06:03)
[2020-07-29] MEDS: PANTOPRAZOLE SODIUM TAB 40 MG PO SCH (06:04)
[2020-07-29] MEDS: BUDESONIDE/FORMOTEROL 160/4.5 60 PUFF/6 GM INH INH SCH (08:00)
[2020-07-29] MEDS: ALBUTEROL INHALER 64 PUFF/8GM INH SCH ×4 (08:00→20:55)
[2020-07-29] MEDS: guaiFENesin ER TAB 600 MG TAB PO SCH ×2 (08:40→20:40)
[2020-07-29] MEDS: BIFIDOBACTERIUM INFANTIS 4 MG CAP PO SCH ×2 (08:40→20:40)
[2020-07-29] MEDS: DEXAMETHASONE INJ 10 MG/ML VIAL IV SCH ×2 (08:40→21:01)
[2020-07-29] MEDS: APIXABAN 5 MG TAB PO SCH ×2 (08:40→20:41)
[2020-07-29] MEDS: cefTRIAXone SODIUM 1 GM in SODIUM CHL 0.9% 50ML MIN-BAG+ 50 ML IVPB SCH (08:41)
[2020-07-29] MEDS: CETIRIZINE HCL 10 MG TAB PO SCH (08:41)
[2020-07-29] MEDS: LOSARTAN POTASSIUM 25 MG TAB PO SCH (08:41)
[2020-07-29] MEDS: CHLORTHALIDONE 25 MG TAB PO SCH (08:41)
[2020-07-29] MEDS: SPIRONOLACTONE 25 MG TAB PO SCH (08:41)
[2020-07-29] MEDS: AZITHROMYCIN IV 500 MG in SODIUM CHLORIDE 0.9% 250ML 250 ML IVPB SCH (08:42)
[2020-07-29] MEDS: SODIUM CHLORIDE 0.9% (FLUSH) 10 ML SYG IV SCH ×2 (09:46→20:41)
--- NOTE | 2020-07-29 09:49 | PN ---
SUPERVISING PHYSICIAN: Taurus Govea MD DATE: 07/29/20 SUBJECTIVE: The patient is sitting up in the chair eating breakfast. No significant complaints of shortness of breath. She has been ambulating around the room and states she is not short of breath with doing this, however, she is still on 9 liters via nasal cannula. OBJECTIVE: VITAL SIGNS: Blood pressure 129/75, heart rate 56, respiratory rate 16, temperature 98.2, oxygen saturation 97% on 9 liters via nasal cannula. GENERAL: Ms. Epps is an 85-year-old female who is in no active distress currently. NEUROLOGIC: The patient is alert and oriented. LUNGS: Diminished. CARDIOVASCULAR: Regular rate and rhythm. Normal S1, S2. ABDOMEN: Soft. Positive bowel sounds. EXTREMITIES: Lower extremities with no significant edema. LABORATORY: White count 13.1, hemoglobin 13.5, platelet count 188. D-dimer 982, which is improved from yesterday at 1170. Chemistry with elevated BUN of 50, creatinine 1.23. CRP 5.6. ASSESSMENT: 1. Acute hypoxemic respiratory failure. 2. COVID-19 pneumonitis. 3. Acute exacerbation of asthma. 4. Altered mental status, resolved. 5. Chronic renal failure. 6. Hypertension. 7. Hypothyroidism. PLAN: We will continue the remdesivir and empiric antibiotics as well as scheduled bronchodilator therapy. Due to her increased oxygen requirements, I am going to increase her Decadron to b.i.d. We will continue the bronchial hygiene. We will continue to monitor labs and x-rays as needed. [facility][id number] [facility]
[2020-07-29] MEDS: REMDESIVIR 100 MG in SODIUM CHLORIDE 0.9% 250ML 250 ML IVPB SCH (11:34)
[2020-07-29] MEDS: SIMVASTATIN 20 MG TAB PO SCH (20:41)
[2020-07-30] MEDS: LEVOTHYROXINE SODIUM 0.1 MG, LEVOTHYROXINE SODIUM 0.025 MG PO SCH ×2 (06:05)
[2020-07-30] MEDS: PANTOPRAZOLE SODIUM TAB 40 MG PO SCH (06:06)
[2020-07-30] MEDS: ALBUTEROL INHALER 64 PUFF/8GM INH SCH ×4 (08:20→20:54)
[2020-07-30] MEDS: BUDESONIDE/FORMOTEROL 160/4.5 60 PUFF/6 GM INH INH SCH (08:20)
[2020-07-30] MEDS: cefTRIAXone SODIUM 1 GM in SODIUM CHL 0.9% 50ML MIN-BAG+ 50 ML IVPB SCH (09:17)
[2020-07-30] MEDS: DEXAMETHASONE INJ 10 MG/ML VIAL IV SCH ×2 (09:17→21:32)
[2020-07-30] MEDS: AZITHROMYCIN IV 500 MG in SODIUM CHLORIDE 0.9% 250ML 250 ML IVPB SCH (09:17)
[2020-07-30] MEDS: guaiFENesin ER TAB 600 MG TAB PO SCH ×2 (09:18→21:30)
[2020-07-30] MEDS: BIFIDOBACTERIUM INFANTIS 4 MG CAP PO SCH ×2 (09:18→21:30)
[2020-07-30] MEDS: SPIRONOLACTONE 25 MG TAB PO SCH (09:18)
[2020-07-30] MEDS: CHLORTHALIDONE 25 MG TAB PO SCH (09:18)
[2020-07-30] MEDS: CETIRIZINE HCL 10 MG TAB PO SCH (09:18)
[2020-07-30] MEDS: LOSARTAN POTASSIUM 25 MG TAB PO SCH (09:18)
[2020-07-30] MEDS: APIXABAN 5 MG TAB PO SCH ×2 (09:18→21:30)
[2020-07-30] MEDS: SODIUM CHLORIDE 0.9% (FLUSH) 10 ML SYG IV SCH ×2 (09:18→21:33)
--- NOTE | 2020-07-30 10:51 | PN ---
SUPERVISING PHYSICIAN: Taurus Govea MD DATE: 07/30/20 SUBJECTIVE: The patient states she really feels good today. She is not really getting short of breath as she walks around the room and she has gone down on her oxygen requirements from 9 liters to 5 liters today. OBJECTIVE: VITAL SIGNS: Blood pressure 133/73, heart rate 77, respiratory rate 18, temperature 97.5, oxygen saturation 92% on 5 liters via nasal cannula. GENERAL: Ms. Epps is an 85-year-old female who is in no active distress currently. NEUROLOGIC: The patient is alert. LUNGS: Diminished, but otherwise clear to auscultation bilaterally. CARDIOVASCULAR: Regular rate and rhythm. Normal S1, S2. ABDOMEN: Soft. Positive bowel sounds. EXTREMITIES: Lower extremities with no edema. LABORATORY: White count 10.8, hemoglobin 13.0, platelet count 197. D-dimer 979. Chemistry with sodium 134, potassium 4.9, chloride 105, CO2 19, BUN 50, creatinine 1.16, glucose 125, calcium 8.8, CRP down to 5.0. ASSESSMENT: 1. Acute hypoxemic respiratory failure. 2. COVID pneumonitis. 3. Acute exacerbation of asthma. 4. Altered mental status, resolved. 5. Chronic renal failure. 6. Hypertension. 7. Hypothyroidism. PLAN: We will continue the remdesivir, dexamethasone and empiric antibiotics. We will continue bronchodilator therapy and bronchial hygiene as well. Oxygen requirements have improved, so we will continue to decrease as tolerated. We will continue to monitor labs and x-rays as needed. [facility][id number] [facility]
[2020-07-30] MEDS: SIMVASTATIN 20 MG TAB PO SCH (21:33)
[2020-07-31] MEDS: LEVOTHYROXINE SODIUM 0.1 MG, LEVOTHYROXINE SODIUM 0.025 MG PO SCH ×2 (05:39)
[2020-07-31] MEDS: PANTOPRAZOLE SODIUM TAB 40 MG PO SCH (05:39)
[2020-07-31] MEDS: ALBUTEROL INHALER 64 PUFF/8GM INH SCH ×4 (08:00→19:15)
[2020-07-31] MEDS: BUDESONIDE/FORMOTEROL 160/4.5 60 PUFF/6 GM INH INH SCH (08:00)
[2020-07-31] MEDS: cefTRIAXone SODIUM 1 GM in SODIUM CHL 0.9% 50ML MIN-BAG+ 50 ML IVPB SCH (09:49)
[2020-07-31] MEDS: AZITHROMYCIN IV 500 MG in SODIUM CHLORIDE 0.9% 250ML 250 ML IVPB SCH (09:49)
[2020-07-31] MEDS: CETIRIZINE HCL 10 MG TAB PO SCH (09:50)
[2020-07-31] MEDS: APIXABAN 5 MG TAB PO SCH ×2 (09:50→20:34)
[2020-07-31] MEDS: SPIRONOLACTONE 25 MG TAB PO SCH (09:50)
[2020-07-31] MEDS: BIFIDOBACTERIUM INFANTIS 4 MG CAP PO SCH ×2 (09:50→20:33)
[2020-07-31] MEDS: DEXAMETHASONE INJ 10 MG/ML VIAL IV SCH ×2 (09:50→20:34)
[2020-07-31] MEDS: CHLORTHALIDONE 25 MG TAB PO SCH (09:50)
[2020-07-31] MEDS: LOSARTAN POTASSIUM 25 MG TAB PO SCH (09:50)
[2020-07-31] MEDS: guaiFENesin ER TAB 600 MG TAB PO SCH ×2 (09:51→20:33)
[2020-07-31] MEDS: SODIUM CHLORIDE 0.9% (FLUSH) 10 ML SYG IV SCH ×2 (09:51→20:37)
--- NOTE | 2020-07-31 15:50 | PN ---
SUPERVISING PHYSICIAN: Taurus Govea MD DATE: 07/31/20 SUBJECTIVE: The patient seems to be doing pretty good. She is not complaining of shortness of breath , not significant. She has actually gotten down to 4 liters on the nasal cannula and seems to be doing well with that. She hash ad no other complaints. She remains afebrile. OBJECTIVE: VITAL SIGNS: Temperature 96.4, pulse 75. Blood pressure 127/82, respirations 16, showing oxygen saturation of 96% on 4 liter nuchal. GENERAL: The patient looks to be resting comfortably, in no acute distress. CHEST; Lung sounds are fairly clear, just diminished toward the bases. CARDIOVASCULAR: Regular rate and rhythm. ABDOMEN: Soft, non-tender. Positive bowel sounds. EXTREMITIES: No edema. NEUROLOGIC: She is alert and oriented x 3. LABORATORY: White count up to 15,500, actually increase her Decadron coverage. Differential does show a left shift with 5 bands. Mild elevated potassium at 5.2, sodium 133, creatinine 1.2, C-reactive protein normal at 2.4. Calcium 8.8, D-dimer now down to 864. MICROBIOLOGY: Blood cultures remain negative after 5 days. RADIOLOGY: No additional radiographic studies today. ASSESSMENT: 1. Acute hypoxemic respiratory failure. 2. COVID pneumonitis. 3. Acute exacerbation of asthma. 4. Altered mental status, resolved. 5. Chronic renal failure. 6. Hypertension. 7. Hypothyroidism. PLAN: We will continue with current plan of care, Remdesivir, antibiotics. Her oxygen requirements see to be decreasing and she is down below 4. She can maintain 4 overnight and show to be stable with no significant desaturation if this is an option. She should be able to discharge home tomorrow. Until then, we will continue to monitor and treat as needed. We will recheck her labs in the morning and repeat a chest x-ray as well. #[id number] [facility]
[2020-07-31] MEDS: SIMVASTATIN 20 MG TAB PO SCH (20:33)
[2020-07-31] MEDS: IV SET AND CAP CHANGE INJ INJ SCH (20:39)
[2020-08-01] MEDS: PANTOPRAZOLE SODIUM TAB 40 MG PO SCH (05:51)
[2020-08-01] MEDS: LEVOTHYROXINE SODIUM 0.1 MG, LEVOTHYROXINE SODIUM 0.025 MG PO SCH ×2 (05:51)
--- NOTE | 2020-08-01 07:56 | RAD ---
EXAM DESCRIPTION: Chest,1 View CLINICAL HISTORY: COVID COMPARISON: July 28, 2020 FINDINGS: The cardiomediastinal silhouette is unremarkable. Bilateral interstitial and patchy alveolar opacities, stable. No pleural effusion. There is no pneumothorax or acute fracture. IMPRESSION: Bilateral pneumonia, unchanged from July 28, 2020. COVID-19 could have this appearance. Electronically signed by: Joesph Joel MD 08/01/2020 7:54 AM FROG CATCHER
[2020-08-01] MEDS: BUDESONIDE/FORMOTEROL 160/4.5 60 PUFF/6 GM INH INH SCH (08:30)
[2020-08-01] MEDS: ALBUTEROL INHALER 64 PUFF/8GM INH SCH ×4 (08:30→19:40)
[2020-08-01] MEDS: APIXABAN 5 MG TAB PO SCH ×2 (11:13→20:52)
[2020-08-01] MEDS: guaiFENesin ER TAB 600 MG TAB PO SCH ×2 (11:14→20:52)
[2020-08-01] MEDS: BIFIDOBACTERIUM INFANTIS 4 MG CAP PO SCH ×2 (11:14→20:52)
[2020-08-01] MEDS: CETIRIZINE HCL 10 MG TAB PO SCH (11:15)
[2020-08-01] MEDS: SODIUM CHLORIDE 0.9% (FLUSH) 10 ML SYG IV SCH ×2 (11:15→20:53)
[2020-08-01] MEDS: cefTRIAXone SODIUM 1 GM in SODIUM CHL 0.9% 50ML MIN-BAG+ 50 ML IVPB SCH (11:16)
[2020-08-01] MEDS: LOSARTAN POTASSIUM 25 MG TAB PO SCH (11:16)
[2020-08-01] MEDS: SPIRONOLACTONE 25 MG TAB PO SCH (11:16)
[2020-08-01] MEDS: AZITHROMYCIN IV 500 MG in SODIUM CHLORIDE 0.9% 250ML 250 ML IVPB SCH (11:18)
[2020-08-01] MEDS: DEXAMETHASONE INJ 10 MG/ML VIAL IV SCH ×2 (11:18→20:53)
[2020-08-01] MEDS: CHLORTHALIDONE 25 MG TAB PO SCH (20:52)
[2020-08-01] MEDS: SIMVASTATIN 20 MG TAB PO SCH (20:53)
[2020-08-02] MEDS: LEVOTHYROXINE SODIUM 0.1 MG, LEVOTHYROXINE SODIUM 0.025 MG PO SCH ×2 (05:55)
[2020-08-02] MEDS: PANTOPRAZOLE SODIUM TAB 40 MG PO SCH (05:56)
--- NOTE | 2020-08-02 08:22 | PN ---
SUPERVISING PHYSICIAN: Taurus Govea MD DATE: 08/01/20 SUBJECTIVE: The patient was actually scheduled to go home today as she had been doing fairly well but wt; ambulation she dropped down into the mid 80s even on high flow with 5 liters. She was very slow to recover, didn't have any distress. She had no complaints of chest pain. She has no other complaints. She is anxious to go home but she understands that until her oxygen needs are below at least 4 where she can tolerate ambulation, she will need to continue with hospitalization. OBJECTIVE: VITAL SIGNS: Temperature 98, pulse 82. Blood pressure 122/67, showing oxygen saturation of 93% on room air at the moment. Earlier today she was at 95% on 3 liter nasal cannula and again, with ambulation she did drop into the mid 80s and required 5 liters just to recover. GENERAL: The patient looks to be resting comfortably, in no acute distress. CHEST; Lung sounds are fairly clear, just diminished toward the bases. CARDIOVASCULAR: Regular rate and rhythm. ABDOMEN: Soft, non-tender. Positive bowel sounds. EXTREMITIES: No edema. NEUROLOGIC: She is alert and oriented x 3. LABORATORY: White count still elevated at 15,800 but she remains in a fairly high dose of Decadron. Left shift was still present but no bands noted. Coagulation studies show D-dimer is now down to 606 and chemistries are showing to be fairly stable, again, potassium is at 5.3, BUN 70, creatinine 1.36. Osmolality 292. C-reactive protein down to 1.2. MICROBIOLOGY: Blood cultures remain negative after 5 days. RADIOLOGY: Repeat chest x-ray this morning per radiology interpretation shows bilateral pneumonia, unchanged from previous exam on July 28. ASSESSMENT: 1. COVID pneumonitis. 2. Exacerbation of asthma secondary to #1. 3. Chronic renal failure, showing to be stable. 4. Leukocytosis, likely due to demarginalization from high dose steroids. 5. Mild electrolyte imbalance with hyperkalemia, likely due to spironolactone. 6. Hypertension, stable. 7. Hypothyroidism on supplementation. PLAN: She will continue on antibiotics. At this point, she has completed a full course of azithromycin. She will continue on Rocephin, Decadron, guaifenesin, Protonix, Eliquis, albuterol. Hopefully, she will be able to transition to outpatient management tomorrow. We will continue to titrate her oxygen needs down as she tolerates. She will have another ambulation study tomorrow and if she passes that, she certainly will be discharged home on oxygen more likely. Until that point, we will continue to monitor and treat as needed. Given that she still has some elevation in her lab, especially with her white count and mild hyperkalemia, we will go ahead and follow her labs. #[id number] [facility]
[2020-08-02] MEDS: BUDESONIDE/FORMOTEROL 160/4.5 60 PUFF/6 GM INH INH SCH (08:45)
[2020-08-02] MEDS: ALBUTEROL INHALER 64 PUFF/8GM INH SCH (08:45)
[2020-08-02] MEDS: cefTRIAXone SODIUM 1 GM in SODIUM CHL 0.9% 50ML MIN-BAG+ 50 ML IVPB SCH (08:50)
[2020-08-02] MEDS: BIFIDOBACTERIUM INFANTIS 4 MG CAP PO SCH (08:51)
[2020-08-02] MEDS: AZITHROMYCIN IV 500 MG in SODIUM CHLORIDE 0.9% 250ML 250 ML IVPB SCH (08:51)
[2020-08-02] MEDS: DEXAMETHASONE INJ 10 MG/ML VIAL IV SCH (08:51)
[2020-08-02] MEDS: CHLORTHALIDONE 25 MG TAB PO SCH (08:51)
[2020-08-02] MEDS: LOSARTAN POTASSIUM 25 MG TAB PO SCH (08:51)
[2020-08-02] MEDS: guaiFENesin ER TAB 600 MG TAB PO SCH (08:51)
[2020-08-02] MEDS: APIXABAN 5 MG TAB PO SCH (08:51)
[2020-08-02] MEDS: SPIRONOLACTONE 25 MG TAB PO SCH (08:52)
[2020-08-02] MEDS: CETIRIZINE HCL 10 MG TAB PO SCH (08:52)
[2020-08-02] MEDS: SODIUM CHLORIDE 0.9% (FLUSH) 10 ML SYG IV SCH (08:52)
[2020-08-02 09:13] VITALS: TEMP 98
[2020-08-02 12:28] VITALS: BP 130/71; O2SAT 98
--- NOTE | 2020-08-14 14:17 | DS ---
SUPERVISING PHYSICIAN: Taurus Govea MD ADMISSION DIAGNOSIS: 1. COVID-19 pneumonitis with hypoxia. 2. Confusion secondary to #1. 3. Sepsis related to bilateral pneumonia. She had an 02 saturation of 82%, respiratory rate of 24 and WBC of 12,800. 4. Chronic renal failure. 5. Hypertension. 6. Asthma with acute exacerbation. 7. Hypothyroidism. DISCHARGE DIAGNOSIS: 1. COVID pneumonitis. 2. Exacerbation of asthma secondary to #1. 3. Chronic renal failure, showing to be stable. 4. Leukocytosis, likely due to demargination from high dose steroids. 5. Mild electrolyte imbalance with hyperkalemia, likely due to spironolactone. 6. Hypertension, stable. 7. Hypothyroidism on supplementation. REASON FOR HOSPITALIZATION: This is an 85 year-old female patient who came to the Emergency Room due to confusion and increased shortness of breath. Her oxygen saturation on admission to the Emergency Room was 82% with a respiratory rate of 24. She was afebrile. After being placed on 02, her oxygen saturation improved to 94%. Her laboratory studies showed WBC of 12,800 with a hemoglobin of 13.2, hematocrit of 40.2. She had a left shift on her differential. Her D- dimer was 1,240. Sodium 134, magnesium 1.7. The remainder of her electrolytes were within normal limits. BUN 51, creatinine 1.43. AST 47, LD 300. C- reactive protein 7.6. Blood cultures were drawn. Chest x-ray showed improved aeration of the lungs but deterioration of the mid lung lobo with developing hazy infiltrate or edema in both mid lung lobo. They were unable to do a CTA due to her renal function. She was given Remdesivir, azithromycin, Rocephin, Decadron and multiple breathing treatments in the Emergency Room and was admitted to the hospital in stable condition. LABORATORY: White count at discharge was 14,800. Differential does show a left shift. Hemoglobin stable at 13.2 and hematocrit 40.0. Platelet count 224,000. Coagulation studies show D-dimer 484 from a maximum on admission of 1170. Chemistries show sodium 133, potassium 5.2, creatinine 1.32. Bilirubin slightly elevated at 1.1. Liver functions all within normal limits. C-reactive protein less than 0.8 from admission of 15.8. Urinalysis showed trace leukocyte esterase. Otherwise, unremarkable. MICROBIOLOGY: Blood cultures negative after 5 days. EK-lead EKG on admission showed normal sinus rhythm with no ST or T-wave changes to indicate acute ischemia or acute coronary syndrome. RADIOLOGY: Final chest x-ray on 08/01/20 showed bilateral pneumonia, essentially unchanged from previous findings on 07/28/20. She also had a CT of the chest on 07/26/20 which showed multifocal pneumonia, consider viral etiology. HOSPITAL COURSE: Ms. Epps was admitted for treatment of COVID pneumonitis/pneumonia. She was started on treatment with azithromycin, Rocephin, remdesivir and Decadron. She was already on Eliquis in regards to DVT prophylaxis prior to hospitalization and that was continued. She was on a proton pump inhibitor for gastric protection. Clinically, she was able to titrate oxygen needs down. On date of discharge, ambulation studies showed saturation 90% at rest, 87% with exertion and then 89% after 2 minute exertion on 3 liters nasal cannula. It was felt she had clinically improved well enough to discharge home to continue management as an outpatient. On discharge, temperature was 98, pulse 87, blood pressure 130/71, respirations 20, saturation 98% on 3 liters nasal cannula. She did have oxygen set up through [facility] prior to discharge. Again, she was clinically improved well enough to continue outpatient management. PLAN: Ms. Epps was discharged on 08/02/20 with instructions to followup with Dr. Greene on 08/06/20 at 9:15 AM. She was to wear oxygen as directed with nasal cannula to maintain O2 saturations at least 94% or greater. She was to resume her home medications as prior to hospitalization. She was to return to the ER for any concerning symptoms. She was going to have physical therapy with home health and increase activities as tolerated. Medications prescribed on discharge included: 1. Align 4 mg twice daily while on antibiotics. 2. Decadron 6 mg daily for 4 days, no refills. 3. Guaifenesin 600 mg twice daily while on antibiotics. 4. Cefdinir 300 mg twice daily, #8, no refills. 5. Albuterol inhaler q.4h. as needed for shortness of breath, #1 inhaler, no refills. CONDITION ON DISCHARGE: Stable and improved. DISPOSITION: The patient was discharged home. #[id number]
== END 2020-08-02 12:10 | disposition home health service (06) | DRG 871 ==
LOC: ER 09:18 → MS 12:18 → OBSVTOIN 12:18
PROVIDERS: ADMIT Nurse Practitioner Acute Care; ATTEND Nurse Practitioner Family
PROC: XW033E5 Introduction of Remdesivir Anti-infective into Peripheral Vein, Percutaneous Approach, New Technology Group 5 (ICD-10-PCS; principal; 2020-07-25)
PROC: 5A0945A Assistance with Respiratory Ventilation, 24-96 Consecutive Hours, High Flow/Velocity Cannula (ICD-10-PCS; 2020-07-26)
DX: A41.89 Other specified sepsis (principal); U07.1 COVID-19; J12.82 Pneumonia due to coronavirus disease 2019; J45.901 Unspecified asthma with (acute) exacerbation; E86.0 Dehydration; E87.5 Hyperkalemia; N18.9 Chronic kidney disease, unspecified; I12.9 Hypertensive chronic kidney disease with stage 1 through stage 4 chronic kidney disease, or unspecified chronic kidney disease; E03.9 Hypothyroidism, unspecified; T50.0X5A Adverse effect of mineralocorticoids and their antagonists, initial encounter; Y92.9 Unspecified place or not applicable; M19.90 Unspecified osteoarthritis, unspecified site; M79.7 Fibromyalgia; Z79.01 Long term (current) use of anticoagulants; Z79.52 Long term (current) use of systemic steroids; Z79.899 Other long term (current) drug therapy